=== PATIENT | male | born 1975 | race American Indian/Alaskan Native ===

== ENCOUNTER 2016-06-20 13:09 | Emergency (ER) | payer SELFPAY ==
[2016-06-20] MEDS ORDERED: TORADOL IM ONE (16:37)
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
[2016-06-20 16:53] VITALS: BP 136/94
== END 2016-06-20 17:31 | disposition home or self-care (01) ==
LOC: ED 13:09
DX: S16.1XXA Strain of muscle, fascia and tendon at neck level, initial encounter (principal); M54.5 Low back pain; M25.521 Pain in right elbow; I10 Essential (primary) hypertension; V59.49XA Driver of pick-up truck or van injured in collision with other motor vehicles in traffic accident, initial encounter; Y92.488 Other paved roadways as the place of occurrence of the external cause; Y93.89 Activity, other specified; Y99.9 Unspecified external cause status
CPT/HCPCS: 96372; 99282; J1885